=== PATIENT | female | born 1990 ===

== ENCOUNTER 2020-11-25 12:11 | Inpatient (IN) | payer SELFPAY ==
[~2020-11-25] VITALS: Ht 165.1 cm; Wt 56.7 kg
[2020-11-25] MEDS ORDERED: LACT. RINGERS/OXYTOCIN 20UNITS 1,000 ML IV ONE (12:30)
[2020-11-25] MEDS ORDERED: DERMOPLAST 60ML BOTTLE TOP PRN (12:30)
[2020-11-25] MEDS ORDERED: PHISODERM TOP SOLN 240ML BTL TOP PRN (12:30)
[2020-11-25] MEDS ORDERED: WITCH HAZEL-GLYCERIN PAD TOP PRN (12:30)
[2020-11-25] MEDS ORDERED: LIDOCAINE 2%HCL (LOCAL ANESTH.) INJ 20ML MDV IJ PRN (12:30)
[2020-11-25 13:14] LABS: Basophils # (auto) 0.2 10 ^3/uL (0-0.2); Basophils % (auto) 1.5 % (0.0-2.0); Eosinophils # (auto) 0 10 ^3/uL (0-0.8); Eosinophils % (auto) 0.1 % (0.0-7.0); Hematocrit 31.6 % (36.0-46.0); Hemoglobin 11.1 g/dL (12.2-16.2); Lymphocytes # (auto) 0.6 10 ^3/uL (0.4-5.4); Lymphocytes % (auto) 5.4 % (10.0-50.0); Mean Corpuscular Hemoglobin 30.4 pg (28.0-32.0); Mean Corpuscular Hgb Conc. 34.9 g/dL (32.0-36.0); Mean Corpuscular Volume 87.1 fL (80.0-100.0); Monocytes # (auto) 0.7 10 ^3/uL (0-1.3); Monocytes % (auto) 5.6 % (0.0-12.0); Neutrophils # (auto) 10.4 10 ^3/uL (1.6-8.6); Neutrophils % (auto) 87.4 % (37.0-80.0); Platelet Count (auto) 192 10^3/uL (140-450); Red Blood Cells 3.63 10^6/uL (4.0-5.20); Red Cell Distribution Width 12.8 % (11.8-14.3)
[2020-11-25 13:31] LABS: INR 1.02 (0.9-1.15)
[2020-11-25 13:34] LABS: Albumin 2.9 g/dL (3.4-5.0); Calcium 8.5 mg/dL (8.5-10.1); Potassium 3.7 mmol/L (3.5-5.1)
[2020-11-25 13:38] LABS: BUN/Creatinine Ratio 13.2; Bilirubin, Total 0.5 mg/dL (0.2-1.0); Total Protein 7.2 g/dL (6.4-8.2)
[2020-11-25 15:45] LABS: Urine Bacteria NONE SEEN /hpf (None Seen); Urine Blood 3+ /uL (Negative); Urine Mucus FEW (None Seen); Urine Specific Gravity 1.015 (1.001-1.035); Urine WBC 98 /hpf (0 - 5)
[2020-11-25] MEDS ORDERED: PROPOFOL 10 MG/ML 20 ML IV ONE (17:18)
[2020-11-25] MEDS ORDERED: MIDAZOLAM HCL 1MG/1ML-2 ML VIAL ONE (17:18)
[2020-11-25] MEDS ORDERED: fentaNYL CITRATE 100 MCG/2 ML VL ONE (17:18)
[2020-11-25] MEDS ORDERED: SODIUM CHLORIDE LOCK 10 ML ONE (17:18)
[2020-11-25] MEDS ORDERED: ONDANSETRON HCL 4 MG/2 ML VIAL ONE (17:18)
[2020-11-25] MEDS ORDERED: SUCCINYLCHOLINE CHLORIDE 20 MG/ML 10ML VIAL IV ONE (17:23)
[2020-11-25] MEDS ORDERED: ceFAZolin 1GM VL ONE (17:50)
[2020-11-25] MEDS ORDERED: ONDANSETRON HCL 4 MG/2 ML VIAL IV PRN (18:15)
[2020-11-25] MEDS ORDERED: HYDROmorphone HCL 2 MG/ML VL IV PRN (18:15)
[2020-11-25] MEDS ORDERED: LACTATED RINGER'S 1,000 ML IV SCH (18:15)
[2020-11-25] MEDS ORDERED: METOCLOPRAMIDE HCL 5MG/ml INJ 2ml VIAL IV PRN (18:15)
[2020-11-25] MEDS ORDERED: MORPHINE SULFATE 4 MG/ML SYR/VIAL IV PRN (18:15)
[2020-11-25 18:41] LABS: Amphetamine Screen, Urine NEGATIVE (NEGATIVE); Barbiturate Scree,Urine NEGATIVE (NEGATIVE); Benzodiazephine Screen, Urine NEGATIVE (NEGATIVE); Cannabinoid Screen, Urine NEGATIVE (NEGATIVE); Cocaine Screen, Urine NEGATIVE (NEGATIVE); Opiate Scree,Urine NEGATIVE (NEGATIVE); Phencyclidine Screen, Urine NEGATIVE (NEGATIVE)
[2020-11-25 18:55] VITALS: BP 110/65
[2020-11-26 07:11] LABS: RPR Non Reactive (Non Reactive)
== END 2020-11-25 17:30 | disposition home or self-care (01) | DRG 770 ==
LOC: LDRP 12:11
PROVIDERS: ADMIT Specialist; ATTEND Specialist
PROC: 10D17ZZ Extraction of Products of Conception, Retained, Via Natural or Artificial Opening (ICD-10-PCS; principal; 2020-11-25 17:35)
DX: O03.4 Incomplete spontaneous abortion without complication (principal); Z20.822 Contact with and (suspected) exposure to COVID-19; Z3A.14 14 weeks gestation of pregnancy
CPT/HCPCS: 36415; 76856; 80053; 80307; 81001; 81002; 85025; 85610; 85730; 86592; 86703; 86762; 86850; 86900; 86901; 87340; 87426; 96365; 96366; G0378; J0330; J0690; J2250; J2405; J2704